=== PATIENT | male | born 1965 | race Caucasian/White ===

== ENCOUNTER 2020-10-29 16:19 | Observation (INO) | payer OTHER, MEDICAID ==
[~2020-10-29] VITALS: Ht 175.3 cm; Wt 96.1 kg
--- NOTE | 2020-10-29 16:59 | PHYS DOC ---
General Adult EDM: Chief Complaint: SEIZURE HPI: HPI: Patient is a 54 year old male who presents with had a witnessed 5-minute seizure at [facility] and hit his head on the nurses station. He is wheelchair-bound. He has had a previous CVA with hemiplegia. He has no history of seizures. The [facility] gave the patient 1 dose of nitroglycerin due to high blood pressure. Patient denies any pain. Per medical staff patient is acting normal for him. Patient is refusing care. He was only satting 88% on room air and slightly tachypneic. Patient is refusing oxygen. Patient shakes his head no or yes to questions. He states no to chest pain, shortness of breath, any pain, abdominal pain, nausea, vomiting, diarrhea, dizziness, vision changes. History includes CVA, aphasia, hemiplegia and hemiparalysis, lack of coordination, depression, generalized weakness, hyperlipidemia, hyponatremia, acidosis, cerebral edema, hypertension, pulmonary embolism, retention of urine. (NATALIA WATTS APRN) Review of Systems: Review of Systems: Constitutional: Denies fever or chills Eyes: Denies change in visual acuity HENT: Denies nasal congestion or sore throat Respiratory: Denies cough or shortness of breath Cardiovascular: Denies chest pain or edema GI: Denies abdominal pain, nausea, vomiting, bloody stools or diarrhea : Denies dysuria Musculoskeletal: Denies back pain or joint pain Integument: Denies rash Neurologic: Denies headache, focal weakness or sensory changes. +Seizure Endocrine: Denies polyuria or polydipsia Lymphatic: Denies swollen glands Psychiatric: Denies depression or anxiety (NATALIA WATTS SHELF STOCKER) Physical Exam: PE: Constitutional: Well developed, well nourished, no acute distress, non-toxic appearance. [] HENT: Normocephalic, atraumatic, bilateral external ears normal, oropharynx moist, no oral exudates, nose normal. [] Eyes: PERRLA, EOMI, conjunctiva normal, no discharge. [] Neck: Normal range of motion, no tenderness, supple, no stridor. [] Cardiovascular:Heart rate tachycardia regular rhythm, no murmur [] Lungs & Thorax: Bilateral upper breath sounds clear lower diminished to auscultation [] Abdomen: Bowel sounds normal, soft, no tenderness, no masses, no pulsatile masses. [] Skin: Warm, dry, no erythema, no rash. [] Back: No tenderness, no CVA tenderness. [] Extremities: No tenderness, no cyanosis, no clubbing, ROM intact, no edema. [] Neurologic: Alert and oriented X 3, normal motor function, normal sensory function, no focal deficits noted. [] Psychologic: Affect normal, judgement normal, mood normal. [] (NATALIA WATTS APRN) EKG: EK and read by Dr. Cuellar is sinus tachycardia and no STEMI. (NATALIA WATTS APRN) Radiology/Procedures: Radiology/Procedures: [][place] [address] IMAGING REPORT Signed PATIENT: MOE DIAZ ACCOUNT: [id number] : 1965 LOCATION: ER AGE: 54 SEX: M EXAM STATUS: REG ER ORD. PHYSICIAN: NATALIA WATTS APRN REASON: seizure without history, hit head PROCEDURE: CT HEAD WO CONTRAST Exam: CT head INDICATION: Seizure without history TECHNIQUE: Sequential axial images through the head were obtained without the administration of IV contrast. Comparisons: None FINDINGS: No focal parenchymal lesion or hemorrhage is identified. There is no midline shift or sulcal effacement. Large chronic appearing infarct at the left MCA distribution. Overlying craniotomy defect is noted. Patchy evidence in the periventricular white matter. No acute vascular territory infarction is identified. Carrion-white distinction is preserved. The ventricular system is within normal limits without compression hydrocephalus. The basal cisterns are well maintained. The visualized portions of the paranasal sinuses and mastoid air cells are well- pneumatized. No acute fractures. IMPRESSION: Large MCA infarct which appears chronic with overlying craniotomy changes. Exposure: One or more of the following in the visualized dose reduction techniques were utilized for this examination: 1. Automated exposure control 2. Adjustment of the MA and/or KV according to patient size Use of iterative of reconstructive technique Electronically signed by: Yasmeen Herrera MD (10/29/2020 5:11 PM) [facility] DICTATED AND SIGNED BY: YASMEEN HERRERA MD DATE: 10/29/201706 CC: NATALIA WATTS APRN; EMERGENCY,DEPARTMENT; PCP,NO ~MTH0 [address] [address] IMAGING REPORT Signed PATIENT: MOE DIAZ ACCOUNT: [id number] : 1965 LOCATION: ER AGE: 54 SEX: M EXAM STATUS: REG ER ORD. PHYSICIAN: NATALIA WATTS APRN REASON: low oxygenation PROCEDURE: PORTABLE CHEST 1V EXAM: Chest, single view. HISTORY: Low oxygen. COMPARISON: None. FINDINGS: A frontal view of the chest is obtained. There is mild diffuse interstitial prominence likely due to atelectasis. There is no consolidation, pleural effusion or pneumothorax. There is a small nodular opacity overlying the right lower thorax. IMPRESSION: 1. Suspected lower lobe predominant atelectasis. 2. Small nodular opacity along the right lower thorax. Short-term radiographic follow-up is recommended to exclude a noncalcified nodule in this location. Electronically signed by: Mirtha Galloway MD (10/29/2020 5:08 PM) [facility] DICTATED AND SIGNED BY: MIRTHA GALLOWAY MD DATE: 10/29/201707 CC: NATALIA WATTS APRN; EMERGENCY,DEPARTMENT; PCP,NO ~MTH0 [address] [address] IMAGING REPORT Signed PATIENT: MOE DIAZ ACCOUNT: [id number] : 1965 LOCATION: ER AGE: 54 SEX: M EXAM STATUS: REG ER ORD. PHYSICIAN: NATALIA WATTS APRN REASON: OMNI 350, 100ml IV. HYPOXIA, HX PE PROCEDURE: CT ANGIOGRAPHY CHEST EXAM: CT angiography of the chest with intravenous contrast. HISTORY: Hypoxia. TECHNIQUE: Computed tomographic images of the chest were obtained following the administration of intravenous contrast according to angiography protocol. Multiplanar reformatting was performed and three dimensional maximum intensity projection images were obtained. *One or more of the following individualized dose reduction techniques were utilized for this examination: 1. Automated exposure control. 2. Adjustment of the mA and/or kV according to patient size. 3. Use of iterative reconstruction technique. COMPARISON: None. FINDINGS: There is no evidence of pulmonary embolism. Evaluation of the lower lobe pulmonary arteries is limited due to motion. The heart is normal in size. The aorta is normal in caliber. There is no lymphadenopathy. There is no pneumothorax or pleural effusion. There is bilateral posterior dependent and basilar atelectasis. There is a 4 mm nodule within the lateral left lower lobe. There is lingular atelectasis or scarring. There is no acute finding involving the upper abdomen. There is cholelithiasis. There is a suspected 4 mm right adrenal myelolipoma. There is left adrenal gland thickening or a left adrenal adenoma measuring 2.1 cm. There is a suspected complex cystic lesion within the upper pole the left kidney measuring 6.4 cm. There are degenerative changes throughout the spine. IMPRESSION: 1. No evidence of pulmonary embolus. Evaluation of the distal pulmonary emboli is limited due to respiratory motion. 2. Bilateral basilar and posterior dependent atelectasis. No consolidated infiltrate is seen. 3. 4 mm left lower lobe pulmonary nodule. Follow-up can be performed in one year if there are risk factors for pulmonary neoplasm. 4. 6.4 cm complex cystic lesion within the upper pole the left kidney. Renal sonography can be performed for characterization. 5. Suspected tiny right adrenal myelolipoma and left adrenal gland thickening or adrenal adenoma. 6. Cholelithiasis. Electronically signed by: Mirtha Galloway MD (10/29/2020 7:18 PM) [facility] DICTATED AND SIGNED BY: MIRTHA GALLOWAY MD DATE: 10/29/201913 CC: NATALIA WATTS APRN; PCP,NO ~MTH0 0 (NATALIA WATTS APRN) Heart Score: C/O Chest Pain: No Risk Factors: Risk Factors: DM, Current or recent (<one month) smoker, HTN, HLP, family history of CAD, obesity. Risk Scores: Score 0 - 3: 2.5% MACE over next 6 weeks - Discharge Home Score 4 - 6: 20.3% MACE over next 6 weeks - Admit for Clinical Observation Score 7 - 10: 72.7% MACE over next 6 weeks - Early Invasive Strategies (NATALIA WATTS APRN) Course & Med Decision Making: Course & Med Decision Making Pertinent Labs and Imaging studies reviewed. (See chart for details) See HPI. Alert and oriented x4 but he is nonverbal. He appropriately nods his head yes or no. Patient is a full code per his paperwork sent over by [facility]. Lungs are clear in upper but diminished in lower. He does seem to tachypnic. Patient is still refusing to keep any oxygen on. IMPRESSION: 1. No evidence of pulmonary embolus. Evaluation of the distal pulmonary emboli is limited due to respiratory motion. 2. Bilateral basilar and posterior dependent atelectasis. No consolidated infiltrate is seen. 3. 4 mm left lower lobe pulmonary nodule. Follow-up can be performed in one year if there are risk factors for pulmonary neoplasm. 4. 6.4 cm complex cystic lesion within the upper pole the left kidney. Renal sonography can be performed for characterization. 5. Suspected tiny right adrenal myelolipoma and left adrenal gland thickening or adrenal adenoma. 6. Cholelithiasis. IMPRESSION: Large MCA infarct which appears chronic with overlying craniotomy changes. Due to the patient think tachypneic and only satting at 88 to 91% on room air and this being the first seizure he is ever had and he has passed strokes patient will be admitted to the hospital for further work-up. He is admitted to the hospitalist. (NATALIA WATTS APRN) Dragon Disclaimer: Dragon Disclaimer: This electronic medical record was generated, in whole or in part, using a voice recognition dictation system. (NATALIA WATTS APRN) Departure Departure: Impression: Primary Impression: Seizure Additional Impression: Hypoxia Disposition: ADMITTED INPATIENT Admitting Physician: Scottie Burciaga (NATALIA WATTS APRN) Condition: STABLE Attending Signature Attending Signature I have reviewed the PA/CRUSHER SUPERVISOR's note and plan of care. I was available for consultation as needed during the patient's visit in the emergency department. I agree with the clinical impression, plan, and disposition. (KEIKO CUELLAR DO) NATALIA WATTS APRN Oct 29, 2020 16:59 KEIKO CUELLAR DO Oct 30, 2020 00:59
--- NOTE | 2020-10-29 17:11 | RAD ---
EXAM: Chest, single view. HISTORY: Low oxygen. COMPARISON: None. FINDINGS: A frontal view of the chest is obtained. There is mild diffuse interstitial prominence like ly due to atelectasis. There is no consolidation, pleural effusion or pneumothorax. There is a small nodular opacity overlying the right lower thorax. IMPRESSION: 1. Suspected lower lobe predominant atelectasis. 2. Small nodular opacity along the right lower thorax. Short-term radiographic follow-up is recommend ed to exclude a noncalcified nodule in this location. Electronically signed by: Mirtha Villafuerte MD (10/29/2020 5:08 PM) [facility]
--- NOTE | 2020-10-29 17:13 | RAD ---
Exam: CT head INDICATION: Seizure without history TECHNIQUE: Sequential axial images through the head were obtained without the administration of IV co ntrast. Comparisons: None FINDINGS: No focal parenchymal lesion or hemorrhage is identified. There is no midline shift or sulcal effaceme nt. Large chronic appearing infarct at the left MCA distribution. Overlying craniotomy defect is noted. P atchy evidence in the periventricular white matter. No acute vascular territory infarction is identif ied. Carrion-white distinction is preserved. The ventricular system is within normal limits without compression hydrocephalus. The basal cisterns are well maintained. The visualized portions of the paranasal sinuses and mastoid air cells are well-pneumatized. No acute fractures. IMPRESSION: Large MCA infarct which appears chronic with overlying craniotomy changes. Exposure: One or more of the following in the visualized dose reduction techniques were utilized for this examination: 1. Automated exposure control 2. Adjustment of the MA and/or KV according to patient size Use of iterative of reconstructive technique Electronically signed by: Yasmeen Hunter MD (10/29/2020 5:11 PM) [facility]
--- NOTE | 2020-10-29 17:15 | EKG ---
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
[2020-10-29 17:35] LABS: BASO % 0 % (0-3); EOS # 0.2 x10^3/uL (0.0-0.7); EOS % 2 % (0-3); HEMATOCRIT 50.2 % (39.0-53.0); LYMPH # 1.2 x10^3/uL (1.0-4.8); LYMPH % 12 % (24-48); MEAN CORPUSCULAR HEMOGLOBIN 30 pg (25-35); MEAN CORPUSCULAR HGB CONC 34 g/dL (31-37); MEAN CORPUSCULAR VOLUME 88 fL (79-100); MONO # 0.4 x10^3/uL (0.0-1.1); MONO % 4 % (0-9); NEUT # 8.7 x10^3uL (1.8-7.7); NEUT % 83 % (31-73); PLATELET COUNT 227 x10^3/uL (140-400); RED BLOOD COUNT 5.68 x10^6/uL (4.30-5.70); RED CELL DISTRIBUTION WIDTH 14.3 % (11.5-14.5); WHITE BLOOD COUNT 10.6 x10^3/uL (4.0-11.0)
[2020-10-29 17:45] LABS: CALCIUM 9.5 mg/dL (8.5-10.1); GFR 78.5; POTASSIUM 4.5 mmol/L (3.5-5.1)
[2020-10-29 17:50] LABS: ALBUMIN 3.4 g/dL (3.4-5.0); TOTAL BILIRUBIN 0.7 mg/dL (0.2-1.0); TOTAL PROTEIN 6.9 g/dL (6.4-8.2)
[2020-10-29] MEDS ORDERED: IV NORMAL SALINE 500ML 500 ML IV ONE (18:00)
[2020-10-29] MEDS ORDERED: IOHEXOL 350 MG/ML 100 ML VIAL. IV ONE (18:00)
[2020-10-29] MEDS ORDERED: IV NORMAL SALINE 1,000ML 1,000 ML IV ONE (18:30)
[2020-10-29 18:37] LABS: BARBITURATES NEG (NEG); BENZODIAZEPINES NEG (NEG); CANNABINOIDS NEG (NEG); COCAINE NEG (NEG); METHADONE NEG (NEG); OPIATES NEG (NEG); PHENCYCLIDINE NEG (NEG)
[2020-10-29 18:44] LABS: AMPHETAMINE/METHAMPHETAMINE NEG (NEG)
--- NOTE | 2020-10-29 19:20 | RAD ---
EXAM: CT angiography of the chest with intravenous contrast. HISTORY: Hypoxia. TECHNIQUE: Computed tomographic images of the chest were obtained following the administration of int ravenous contrast according to angiography protocol. Multiplanar reformatting was performed and three dimensional maximum intensity projection images were obtained. *One or more of the following individualized dose reduction techniques were utilized for this examina tion: 1. Automated exposure control. 2. Adjustment of the mA and/or kV according to patient size. 3. Use of iterative reconstruction technique. COMPARISON: None. FINDINGS: There is no evidence of pulmonary embolism. Evaluation of the lower lobe pulmonary arteries is limited due to motion. The heart is normal in size. The aorta is normal in caliber. There is no l ymphadenopathy. There is no pneumothorax or pleural effusion. There is bilateral posterior dependent and basilar atelectasis. There is a 4 mm nodule within the lateral left lower lobe. There is lingular atelectasis or scarring. There is no acute finding involving the upper abdomen. There is cholelithia sis. There is a suspected 4 mm right adrenal myelolipoma. There is left adrenal gland thickening or a left adrenal adenoma measuring 2.1 cm. There is a suspected complex cystic lesion within the upper p ole the left kidney measuring 6.4 cm. There are degenerative changes throughout the spine. IMPRESSION: 1. No evidence of pulmonary embolus. Evaluation of the distal pulmonary emboli is limited due to resp iratory motion. 2. Bilateral basilar and posterior dependent atelectasis. No consolidated infiltrate is seen. 3. 4 mm left lower lobe pulmonary nodule. Follow-up can be performed in one year if there are risk fa ctors for pulmonary neoplasm. 4. 6.4 cm complex cystic lesion within the upper pole the left kidney. Renal sonography can be perfor med for characterization. 5. Suspected tiny right adrenal myelolipoma and left adrenal gland thickening or adrenal adenoma. 6. Cholelithiasis. Electronically signed by: Mirtha Villafuerte MD (10/29/2020 7:18 PM) [facility]
[2020-10-29] MEDS ORDERED: levETIRAcetam 500 MG/5 ML VIAL IV ONE (20:02)
[2020-10-29] MEDS ORDERED: IV NORMAL SALINE 100ML 0 ML ONE (20:02)
[2020-10-29 20:11] LABS: BILIRUBIN,URINE NEG (NEG); CLARITY,URINE CLEAR; COLOR,URINE YELLOW; GLUCOSE,URINE NEG (NEG)
[2020-10-29 20:12] LABS: BACTERIA,URINE 0 /HPF (0-FEW); NITRITE,URINE NEG (NEG); RBC,URINE 0 /HPF (0-2); UROBILINOGEN,URINE 0.2 mg/dL (0.2 mg/dL); WBC,URINE 0 /HPF (0-4)
[2020-10-29 20:40] VITALS: BP 143/96
--- NOTE | 2020-10-29 20:40 | NUR ---
Pt admitted to ICU bed 1 from ER via gurney, accompanied by EMS and nursing staff. Pt alert and awake but non-verbal (baseline). Pt can nod head appropriately to yes or no questions, has hx of CVA with right hemiplegia & Aphasia. Pt here for new onset seizure. Pt lives at [facility], health history and home medications per paperwork. Pt placed on telemetry, S.Tach noted on monitor. Pt oriented to room, call light and bed. Pt updated on POC, pt nods head with understanding. Pt in Seizure precautions, padded rails. Paged consult out to Dr Winslow, returned call and will see pt in AM. Dr Burciaga called, update given and home medications reviewed/reordered. IV Keppra given per order. Pt was given written information regarding hospital policies, unit procedures and contact persons. Pt TQ2. Pt incont of urine, changed and herve-care given, coccyx intact, red blanchable. [facility] called for Covid vaccine status, stated that pt had received both 2 doses and was UTD. Pt took HS medications whole and ate pudding before bed.
[2020-10-29] MEDS ORDERED: diphenhydrAMINE HCL 25 MG CAPSULE PO PRN (21:15)
[2020-10-29] MEDS ORDERED: POLY17PO5 PO ×2 (21:22→21:24)
[2020-10-29] MEDS ORDERED: DOCU-109 PO (21:22)
[2020-10-29] MEDS ORDERED: ACET160O49 PO (21:22)
[2020-10-29] MEDS ORDERED: DANT25CA4 PO (21:22)
[2020-10-29] MEDS ORDERED: CHOL500021 PO (21:22)
[2020-10-29] MEDS ORDERED: GABA-586 PO (21:22)
[2020-10-29] MEDS ORDERED: [UNRECOGNIZED DRUG - CODE] PO (21:22)
[2020-10-29] MEDS ORDERED: BUPR300T3 PO (21:22)
[2020-10-29] MEDS ORDERED: ASPI-630 PO (21:22)
[2020-10-29] MEDS ORDERED: ATORVASTATIN CA80 MG PO (21:22)
[2020-10-29] MEDS ORDERED: ESCITALOPRAM OX10 MG PO (21:22)
[2020-10-29] MEDS ORDERED: ONDA4TAB7 PO (21:22)
[2020-10-29] MEDS ORDERED: SENN8.6T11 PO (21:24)
[2020-10-29] MEDS ORDERED: ACET325T9 PO (21:24)
[2020-10-29] MEDS ORDERED: ACETAMINOPHEN 325 MG TABLET PO PRN (21:45)
[2020-10-29] MEDS: GABAPENTIN 300 MG CAPSULE. PO SCH (21:59)
[2020-10-29] MEDS: DANTROLENE SODIUM 25 MG PO SCH (21:59)
[2020-10-29 22:00] VITALS: BP 137/97
[2020-10-29] MEDS ORDERED: ATORVASTATIN CALCIUM 20 MG TABLET PO SCH (22:00)
[2020-10-29] MEDS ORDERED: ONDANSETRON ODT 4 MG TAB.RAPDIS PO PRN (22:00)
[2020-10-29] MEDS ORDERED: CHOLECALCIFEROL (VITAMIN D3) 1,000 UNIT TABLET PO SCH (22:00)
[2020-10-29 22:55] VITALS: BP 154/94
[2020-10-29 23:45] VITALS: BP 133/85
[2020-10-30] VITALS (10 sets, daily range): BP systolic 134–160; BP diastolic 89–114
[2020-10-30] MEDS ORDERED: ONDANSETRON ODT 4 MG TAB.RAPDIS PO SCH
--- NOTE | 2020-10-30 06:20 | NUR ---
Pt slept great during night after taking HS medications and PRN Benadryl. Pt's O2 would desat with apneic breathing when sleeping soundly but rapid climb back up into the high 90's. Pt refusing to wear oxygen. Pt incont of urine frequently and changed with Q2 turning.
--- NOTE | 2020-10-30 08:11 | CONS ---
DATE OF CONSULTATION: NEUROLOGY CONSULTATION REFERRING PHYSICIAN: Dr. Burciaga. REASON FOR CONSULTATION: New onset of seizure. HISTORY OF PRESENT ILLNESS: This is a 54-year-old right-handed male who has had a longstanding history of stroke in the left MCA resulted in left hemiparesis and left hemiplegia. The patient is a resident of [facility], was witnessed to have 5-minute history of seizure, described as a generalized tonic-clonic seizure. The patient is aphasic, secondary to large left MCA infarct with brain edema, probably hemorrhagic infarction required craniotomy. According to our chart, the patient was found to have oxygen saturation of 88% and he was tachypneic; however, he refused oxygen supplement. PAST MEDICAL HISTORY: Significant for hemorrhagic infarct as described above resulted in aphasia and hemiplegia. He is wheelchair bound. His other medical history includes depression, hypertension, hyperlipidemia and history of cerebral edema. PAST SURGICAL HISTORY: Craniotomy. The patient has no history of seizure. FAMILY HISTORY: Unobtainable. SOCIAL HISTORY: The patient is a resident of [facility], no history of smoking, alcohol drinking, or illicit drug use. CURRENT HOME MEDICATIONS: Celexa 20 mg p.o. daily, Wellbutrin 300 mg p.o. daily, aspirin 81 mg daily, Lipitor 80 mg p.o. at bedtime, gabapentin 300 mg t.i.d., vitamin D3 5000 units at bedtime, Tylenol, lorazepam 0.5 mg q. 4 hours p.r.n. for agitation. The patient was loaded with 1000 mg of levetiracetam. ALLERGIES: No known drug allergies. REVIEW OF SYSTEMS: A 10-point review of system was performed as mentioned above in history of present illness. PHYSICAL EXAMINATION: GENERAL: Obese male, not in acute distress. He weighs 96.1 kilos. VITAL SIGNS: Blood pressure 151/104, respiratory rate 18, pulse is 83, temperature 97.6, oxygen saturation is 95% on room air. HEENT: Normocephalic, atraumatic, otherwise unremarkable. NECK: Supple. Negative for carotid bruit, lymphadenopathy or thyromegaly. LUNGS: Clear to A and P. CARDIOVASCULAR: Regular rate and rhythm, normal S1, S2. ABDOMEN: Soft. EXTREMITIES: Negative for cyanosis, clubbing or edema. NEUROLOGICAL EXAM: Mental status: The patient is aphasic secondary to stroke. There is no obvious facial asymmetry. Pupils are equal and reactive to light and accommodation. The extraocular movements are slow. There is no nystagmus. Hearing appeared to be intact. Further evaluation is limited as the patient is resisting and not answering questions. Motor examination: The patient has right hemiplegia with weakness of the left upper and lower extremities. Sensory examination: Diminished pinprick and light touch senses in the right upper and lower extremities. Deep tendon reflexes were 2/4 on the right upper and lower extremities and 1/4 in the left upper and lower extremities. Gait: The patient has hemiplegia. LABORATORY DATA: CBC revealed white blood cells of 10.6 thousand, hemoglobin 17, hematocrit 50.2, platelet count is 227,000. Chemistry revealed sodium of 141, potassium 4.5, chloride 102, CO2 of 26, BUN 12, creatinine 1, glucose 149. Lactic acid is 1.1. Troponin level is normal. Urinalysis is negative for urinary tract infections. Urine drug screen is negative. D-dimer is high at ___. IMPRESSION: 1. New onset of seizure, likely due to large left MCA. However, it was reported that the patient was given nitroglycerin for hypertension in the assisted prior to having seizures. 2. Status post hemorrhagic infarct resulted in craniotomy for cerebral edema. 3. Multiple medical problems include depressions, anxiety, hypertension, hyperlipidemia. RECOMMENDATIONS: 1. We will continue with levetiracetam, Keppra 500 mg b.i.d. 2. Continue with current home medications and current medical care. M Reva MENDEZ MD DR: PAYAM/cynthia JOB#: [id number] / [id number]
[2020-10-30] MEDS: DANTROLENE SODIUM 25 MG PO SCH (08:35)
[2020-10-30] MEDS: GABAPENTIN 300 MG CAPSULE. PO SCH (08:36)
--- NOTE | 2020-10-30 08:49 | HP ---
ADMIT DATE: 10/29/2020 ATTENDING PHYSICIAN: Dr. Mckenna. CHIEF COMPLAINT: Witnessed grand mal seizures. HISTORY OF PRESENT ILLNESS: The patient is a 54-year-old gentleman who unfortunately suffered a large stroke involving the left middle cerebral artery distribution. He has significant right-sided hemiparesis, aphasia and has been bedridden. He has not had seizures before. He had a 5-minute witnessed seizure at [facility]. He evidently hit his head on the nurse's station. He is wheelchair bound. He was sent here for further evaluation. Urgent CT of the head done in the ED showed no evidence of new strokes. There is encephalomalacia and evidence of a right middle cerebral artery distribution stroke that is old. There are postop craniotomy changes. CT of the chest showed no evidence of blood clot. X-ray showed atelectasis. I consulted the ED provider. We did load him with Keppra, which is new. He was admitted for observation and initiation of antiepileptic medication. P.r.n. Ativan was also ordered, but he has not required them. The patient is nonverbal; therefore, much of the history is obtained from the chart. PAST MEDICAL HISTORY: Significant for the stroke. ALLERGIES: He has no known drug allergies. CURRENT MEDICATIONS: Include the following: At a fdc, he was taking baclofen 3 times a day, Tylenol p.r.n., aspirin daily, Lipitor 80 mg daily, BuSpar, dantrolene sodium, docusate, Lexapro, Neurontin, ondansetron p.r.n., MiraLax and senna. SOCIAL HISTORY: He had been a smoker in the past. Nonsmoker, nondrinker. He is fdc ridden, wheelchair bound and nonambulatory. FAMILY HISTORY: Unobtainable. REVIEW OF SYSTEMS: Unobtainable due to the patient's aphasia. He will respond and nod, yes or no. PHYSICAL EXAMINATION: GENERAL: When I saw him, this is aphasic patient who was in no acute respiratory distress. INITIAL VITAL SIGNS: Post-procedure showed a blood pressure 134/89, pulse is 82 and regular. He is afebrile with a temperature 97.6 degrees Fahrenheit, and oxygen saturation were 96% on room air. HEENT: Head is without trauma. Pupils are reactive. Sclerae nonicteric. The oropharynx is clear. NECK: Supple. LUNGS: Shallow respirations. CARDIOVASCULAR: Showed distant heart tones. No gallops. ABDOMEN: Soft, no guarding. There is an old scar from previous feeding tube in the left upper quadrant that is well healed. There is no drainage. There is no guarding or rebound tenderness. EXTREMITIES: Showed no cyanosis or edema. NEUROLOGIC: The patient is aphasic. He has significant right-sided hemiparesis. He is bedridden. He is nonverbal at this time. SKIN: Otherwise warm and dry. PERTINENT LABORATORY AND X-RAY STUDIES: As noted. The CT of the head showed no acute stroke. He has a large old stroke involving the left middle cerebral artery distribution, which affects Broca's area and speech and right-sided motor function. CT of the chest ruled out any blood clots. There are no infiltrates identified. Has some atelectasis. The hemoglobin is 17.0 g/dL with a white count of 10,600. Chemistry panel, electrolytes, BUN and creatinine within normal range. Nonfasting blood sugar 148. Cardiac enzymes negative for coronary ischemia. Urinalysis is clear. Toxicology is unremarkable for any secondary drugs of abuse. ASSESSMENT: 1. This 54-year-old gentleman has witnessed grand mal seizures, the foci of the seizures is due to his old previous stroke. The stroke involves the left middle cerebral artery distribution, which affects the speech area and right-sided motor. 2. Spastic paraparesis. 3. Hyperlipidemia. PLAN: 1. Keppra has been initiated 1000 mg IV b.i.d. 2. Continue home meds. 3. We shall ascertain his code status. 4. Diet as tolerated. ISAURA MCKENNA MD DR: TINY/cynthia JOB#: [id number] / [id number]
[2020-10-30] MEDS ORDERED: buPROPion XL 300 MG TAB.ER.24H. PO SCH (09:00)
[2020-10-30] MEDS ORDERED: CITALOPRAM 20 MG TABLET. PO SCH (09:00)
[2020-10-30] MEDS ORDERED: POLYETHYLENE GLYCOL 3350 17 GM PACKET. PO SCH (09:00)
[2020-10-30] MEDS ORDERED: ASPIRIN CHEWABLE 81 MG TABLET. PO SCH (09:00)
--- NOTE | 2020-10-30 09:47 | NUR ---
Dr. Winslow and Dr. Burciaga were both here to see pt. Dr. Winslow suggested to continue Keppra and for it to be changed to po. Pt only at 25% of breakfast. Pt initially refused morning medications, pt did finally agree to take his meds. Dr. Burciaga spoke with pt's ELENA, Abebe Salcido NP at [facility] regarding discharge instructions. Dr. Burciaga gave order to dc Dantrolene and to continue Keppra. Discharge assessment completed. Report was called to JADYN Vásquez at [facility]. IV Dc'd and EMS called for transport.
--- NOTE | 2020-10-30 10:40 | NUR ---
EMS here to transport pt [facility], report given to [facility] manager consumer.
--- NOTE | 2020-10-30 11:49 | DS ---
DATE OF DISCHARGE: 10/29/2020 ATTENDING PHYSICIAN: Dr. Mckenna. FINAL DISCHARGE DIAGNOSES: 1. Seizure disorder, witnessed, grand mal. 2. 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 3. Essential hypertension. 4. Hyperlipidemia. HISTORY AND PHYSICAL: The patient is an unfortunate 54-year-old gentleman who has had an old stroke involving the left middle cerebral artery distribution, resulting in right hemiparesis and aphasia. He has been a resident at [facility]. Recently, he was started on dantrolene for what the exact condition is unclear. It has been reported that dantrolene has been shown to lower the seizure threshold. He was sent here for further evaluation. PHYSICAL EXAMINATION: Please see the dictated note. PERTINENT LABORATORY AND X-RAY STUDIES: The obligatory CT of the head showed the old stroke. No new bleeds or infarct identified. Hemoglobin was 17.0 g/dL with a white count of 10,600. Chemistry panel all within normal range. Creatinine is 1.0. Liver panel, transaminases, blood sugar all within normal range. COURSE IN THE HOSPITAL: The patient was admitted to the monitored unit. We started him on empiric Keppra. For now, we discussed the case with his providers and we took the liberty of stopping his dantrolene. He did well. Diet was advanced. He refused a lot of his treatment, but this is about baseline for the patient. On the next hospital day, he was not having any further seizures. He was back to his baseline. He is therefore discharged back to [facility]. He will continue his Tylenol p.r.n., aspirin, Lipitor, cholecalciferol, citalopram. Dantrolene has been stopped. Neurontin will be continued, ondansetron p.r.n., MiraLax, Wellbutrin, Benadryl p.r.n., Keppra in the form of oral Keppra 1000 mg p.o. b.i.d. I suggested to Mr. Gold that we continue this for a month and then see if he can get by without it. He also had a full neurologic consultation by Dr. Winslow. His recommendation is the same with the Keppra. We will also try to ascertain his code status. The patient was then discharged by ambulance back to [facility] with these changes in his medication list. His prognosis is fair. ISAURA MCKENNA MD DR: TINY/cynthia JOB#: [id number] / [id number] Abebe Vela
== END 2020-10-30 10:45 ==
LOC: ER 16:19 → ICU 19:44 → INTOOBSV 19:44 → ER 20:36
PROVIDERS: ADMIT Hospitalist; ATTEND Hospitalist
DX: G40.409 Other generalized epilepsy and epileptic syndromes, not intractable, without status epilepticus (principal); G11.4 Hereditary spastic paraplegia; R09.02 Hypoxemia; I10 Essential (primary) hypertension; F41.9 Anxiety disorder, unspecified; F32.9 Major depressive disorder, single episode, unspecified; I26.99 Other pulmonary embolism without acute cor pulmonale; I63.513 Cerebral infarction due to unspecified occlusion or stenosis of bilateral middle cerebral arteries; I69.354 Hemiplegia and hemiparesis following cerebral infarction affecting left non-dominant side; E78.5 Hyperlipidemia, unspecified; J98.11 Atelectasis; K80.20 Calculus of gallbladder without cholecystitis without obstruction; Z79.899 Other long term (current) drug therapy; Z79.82 Long term (current) use of aspirin; Z86.711 Personal history of pulmonary embolism; Z87.891 Personal history of nicotine dependence
CPT/HCPCS: 36415; 70450; 71045; 71275; 80053; 80307; 81001; 83605; 84484; 85025; 85379; 93005; 96361; 96365; 96366; 99285; G0378; J1953; J7030; Q0163; Q9967; G0379

== ENCOUNTER 2021-09-15 12:37 | Emergency (ER) | payer OTHER, MEDICAID ==
[~2021-09-15] VITALS: Ht 177.8 cm; Wt 90.0 kg
[~2021-09-15 12:37] MED LIST: ACET160O49 PO; ACET325T9 PO; ASPI-630 PO; ATORVASTATIN CA80 MG PO; BUPR300T3 PO; CHOL500021 PO; DANT25CA4 PO; DOCU-109 PO; ESCITALOPRAM OX10 MG PO; GABA-586 PO; ONDA4TAB7 PO; POLY17PO5 PO; SENN8.6T11 PO; [UNRECOGNIZED DRUG - CODE] PO
[2021-09-15] MEDS ORDERED: MIDAZOLAM HCL PF 5 MG/5 ML VIAL. IM ONE (13:00)
--- NOTE | 2021-09-15 13:00 | PHYS DOC ---
Past History Past Medical History: CVA, Stroke Additional Past Medical Histor: aphasia, hemiplegia, PE, cor pulmonale, hyponatremia Additional Past Surgical Histo: craniotomy Alcohol Use: None Adult General HPI HPI Patient is a 55-year-old male presenting via [facility] for [facility]. This was witnessed without any reported trauma, falls, exposure or i ngestion. Patient was in bed when he was observed spontaneously going into generalized tonic-clonic convulsions. It was reported that eyes rolled to the back of the head and he urinated himself which is not unusual. EMS was subsequently called and on arrival, patient was found to be hemodynamically stable with an unremarkable POC glucose and appeared postictal. Report was given to EMS personnel stating that he has had seizures in the past but has not been taking his seizure medication. Patient ultimately transferred to our facility for evaluation. On arrival, history from patient is limited due to history of left stroke in left MCA resulting in patient being aphasic with left hemiparesis and left hemiplegia. Per chart review, it appears patient was seen and evaluated at our facility with formal consultation by neurologist, Dr. Mendez, who thought the new onset of seizure was likely due to large left MCA. Given his history of hemorrhagic infarct resulting in craniotomies for cerebral edema, patient was started on 500 mg Keppra twice daily at that time. As mentioned above though, he has not been taking this. Has other medical history such as depression, anxiety, hypertension and hyperlipidemia but is otherwise been at reported baseline health Review of Systems Review of Systems Fourteen body systems of review of systems have been reviewed. See HPI for pertinent positives and negative responses, other marino all other systems are negative, non-pertinent or non-contributory Allergies Allergies Allergies Coded Allergies Type Severity Reaction Last Updated Verified No Known Drug Allergies 10/29/20 No Physical Exam Physical Exam Constitutional: Well developed, appears older than stated age, no acute distress, non-toxic appearance. HENT: Normocephalic, atraumatic, bilateral external ears normal, oropharynx moist, no oral exudates, nose normal. Eyes: PERRLA, EOMI, conjunctiva normal, no discharge. Neck: Normal range of motion, no tenderness, supple, no stridor. Cardiovascular: Heart rate regular, sinus rhythm, no murmurs rubs or gallops Lungs & Thorax: Bilateral breath sounds clear to auscultation Abdomen: Bowel sounds normal, soft, no tenderness, no masses, no pulsatile masses. Nonsurgical abdomen, no peritoneal signs Skin: Warm, dry, no erythema, no rash. Dry skin globally Back: No tenderness, no CVA tenderness. Extremities: No tenderness, no cyanosis, no clubbing, ROM intact, no edema. Neurologic: Alert and oriented to person only but aphasic and unable to determine orientation to place or time, decreased motor and sensory function to left upper and lower extremities with 4/5 muscle strength of left arm despite prior report of complete left-sided hemiparesis, patient's condition on arrival reportedly baseline for EMS who confirmed prior deficits with sending facility. Psychologic: Flat affect, aggravated mood Current Patient Data Vital Signs Vital Signs Date Time Temp Pulse Resp B/P (MAP) Pulse Ox O2 Delivery O2 Flow Rate FiO2 09/15/21 14:23 97.8 72 18 113/73 (86) 96 Room Air Vital Signs Date Time Temp Pulse Resp B/P (MAP) Pulse Ox O2 Delivery O2 Flow Rate FiO2 09/15/21 14:23 97.8 72 18 113/73 (86) 96 Room Air Lab Results Laboratory Tests Test 09/15/21 13:35 White Blood Count 7.9 x10^3/uL Red Blood Count 5.16 x10^6/uL Hemoglobin 15.4 g/dL Hematocrit 46.7 % Mean Corpuscular Volume 91 fL Mean Corpuscular Hemoglobin 30 pg Mean Corpuscular Hemoglobin Concent 33 g/dL Red Cell Distribution Width 13.8 % Platelet Count 198 x10^3/uL Neutrophils (%) (Auto) 79 % Lymphocytes (%) (Auto) 13 % Monocytes (%) (Auto) 7 % Eosinophils (%) (Auto) 2 % Basophils (%) (Auto) 1 % Neutrophils # (Auto) 6.2 x10^3uL Lymphocytes # (Auto) 1.0 x10^3/uL Monocytes # (Auto) 0.5 x10^3/uL Eosinophils # (Auto) 0.1 x10^3/uL Basophils # (Auto) 0.0 x10^3/uL Sodium Level 138 mmol/L Potassium Level 4.4 mmol/L Chloride Level 102 mmol/L Carbon Dioxide Level 26 mmol/L Anion Gap 10 Blood Urea Nitrogen 11 mg/dL Creatinine 1.0 mg/dL Estimated GFR (Cockcroft-Gault) 78.2 Glucose Level 79 mg/dL Lactic Acid Level 3.6 mmol/L Calcium Level 9.0 mg/dL Current Medications Medications (Trade) Dose Ordered Sig/Isela Route PRN Reason Start Time Stop Time Status Last Admin Dose Admin Midazolam HCl (Versed) 2.5 mg 1X ONCE IM 09/15/21 13:00 09/15/21 13:21 DC 09/15/21 13:00 Levetiracetam 1000 mg/Sodium Chloride 100 ml @ 400 mls/hr 1X ONCE IV 09/15/21 13:15 09/15/21 13:29 DC 09/15/21 13:15 EKG EKG EKG ordered and interpreted by myself at 1350 hrs. as sinus rhythm at 78 bpm, unremarkable intervals, left axis deviation, no STEMI Radiology/Procedures Radiology/Procedures [] Heart Score C/O Chest Pain: No Risk Factors: Risk Factors: DM, Current or recent (<one month) smoker, HTN, HLP, family history of CAD, obesity. Risk Scores: Risk Factors: DM, Current or recent (<one month) smoker, HTN, HLP, family history of CAD, obesity. Course & Med Decision Making Course & Med Decision Making ABCs unremarkable Patient initially aggressive towards staff, 2.5 IM Versed administered. POC glucose, IV access, 500ml IV NS, and subsequent work-up safely obtained showing no emergent and/or surgical issues I contacted Dr. Mendez, neurologist who saw patient when he was previously admitted at our facility November 04, 2020 and reviewed case at length. He recommended loading dose of Keppra 1000 mg then discharge with 500 mg twice daily with close outpatient follow-up I agree to this plan of care. Patient updated on plan of care as was patient's sending facility. Disclose little indication for further diagnostic work-up and/or need for hospitalization with most likely cause of patient's seizure noncompliance to previously prescribed antiepileptic medications Dragon Disclaimer Dragon Disclaimer This electronic medical record was generated, in whole or in part, using a voice recognition dictation system. Departure Departure: Impression: Primary Impression: Seizure Disposition: HOME / SELF CARE / HOMELESS Condition: STABLE Referrals: ELOY SAGASTUME (PCP) CRUZ MENDEZ MD Patient Instructions: Seizure, Adult Additional Instructions: It is unclear what caused your seizure. You should follow up with your facility physician and should see neurology if you continue to have poor seizure contr ol. Your case was reviewed with Dr. Mendez, neurologist who saw you in October 2020 who agreed with work-up in ER and need to administer bolus of 1000 mg Keppra and subsequently start you on 500 mg Keppra twice daily. Make sure to take your medications as prescribed. Return to the ED if you develop increased seizures, more than one seizure in a row without returning to normal, seizure longer than 5 minutes, or any other new or concerning symptoms. Scripts Levetiracetam (KEPPRA) 500 Mg Tablet 1 TAB PO BID for seizures for 30 Days, #60 TAB 0 Refills Prov: MACHO SOUTH DO 09/15/21 MACHO SOUTH DO Sep 15, 2021 13:00
[2021-09-15 13:48] LABS: BASO % 1 % (0-3); EOS # 0.1 x10^3/uL (0.0-0.7); EOS % 2 % (0-3); HEMATOCRIT 46.7 % (39.0-53.0); HEMOGLOBIN 15.4 g/dL (13.0-17.5); LYMPH % 13 % (24-48); MEAN CORPUSCULAR HEMOGLOBIN 30 pg (25-35); MEAN CORPUSCULAR HGB CONC 33 g/dL (31-37); MEAN CORPUSCULAR VOLUME 91 fL (79-100); MONO # 0.5 x10^3/uL (0.0-1.1); MONO % 7 % (0-9); NEUT # 6.2 x10^3uL (1.8-7.7); NEUT % 79 % (31-73); PLATELET COUNT 198 x10^3/uL (140-400); RED BLOOD COUNT 5.16 x10^6/uL (4.30-5.70); RED CELL DISTRIBUTION WIDTH 13.8 % (11.5-14.5); WHITE BLOOD COUNT 7.9 x10^3/uL (4.0-11.0)
[2021-09-15 13:53] LABS: GFR 78.2; POTASSIUM 4.4 mmol/L (3.5-5.1)
--- NOTE | 2021-09-15 14:00 | EKG ---
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
[2021-09-15] MEDS ORDERED: IV NORMAL SALINE 500ML 500 ML ONE (14:19)
[2021-09-15] MEDS ORDERED: LEVE500T56 PO (14:22)
[2021-09-15 14:23] VITALS: BP 113/73
[2021-09-15] MEDS ORDERED: IV NORMAL SALINE 500ML 500 ML IV ONE (14:30)
== END 2021-09-15 16:10 | disposition home or self-care (01) ==
LOC: ER 12:37
DX: G40.89 Other seizures (principal); F32.9 Major depressive disorder, single episode, unspecified; F41.9 Anxiety disorder, unspecified; I10 Essential (primary) hypertension; E78.5 Hyperlipidemia, unspecified; Z86.73 Personal history of transient ischemic attack (TIA), and cerebral infarction without residual deficits
CPT/HCPCS: 36415; 80048; 83605; 85025; 93005; 96361; 96365; 96372; 99284; J1953; J2250; J7040